=== PATIENT | male | born 1960 | race Caucasian/White ===

== ENCOUNTER → 2017-08-13 09:06 | Outpatient (CLI) | payer MEDICAID, SELFPAY ==
--- NOTE | 2017-08-13 09:09 | RAD_ITS ---
STUDY: X-RAY - PELVIS AND RIGHT HIP REASON FOR EXAM: Male, 57 years old. Right hip pain, no injury TECHNIQUE: Radiological exam, hip, unilateral, with pelvis when performed; 2 or 3 views. COMPARISON: None. FINDINGS: There is a non-specific bowel gas pattern. Normal visualized soft tissue structures. Normal bilateral iliac wings, sacroiliac joints and visualized sacrum. Normal bilateral superior and inferior pubic rami. Normal pubic symphysis. Normal bilateral ischial tuberosities. There are osteoarthritic changes of the femoral head with marginal osteophyte formation. Normal acetabulum. There is moderate articular joint space narrowing of the hip. RAD/Hip 2-3 Views with Pelvis IMPRESSION: Degenerative changes without acute findings Electronically Signed: Mason Cobos DO at 16:42 EDT Tel , Service support ,
== END ==
PROVIDERS: Family Provider Family Medicine; PCP Family Medicine; Visit Provider Orthopaedic Surgery
DX: M25.551 Pain in right hip (principal)
CPT/HCPCS: 73502